=== PATIENT | female | born 2000 | race Caucasian/White ===

== ENCOUNTER 2020-10-16 11:59 | Observation (INO) ==
[2020-10-16] MEDS ORDERED: Naloxone 0.4 MG/ML INJ IVP PRN ×2 (13:10→18:48)
[2020-10-16] MEDS ORDERED: *HR* Promethazine 25 MG/ML VIAL IM PRN ×2 (13:10→18:48)
[2020-10-16] MEDS ORDERED: Ketorolac 15 MG/ML VIAL IVP PRN ×2 (13:10→18:48)
[2020-10-16] MEDS ORDERED: Ondansetron 4 MG/2 ML VIAL IVP PRN ×2 (13:10→18:48)
[2020-10-16] MEDS ORDERED: 0.9 % Sodium Chloride 1,000 ML IVC SCH ×2 (13:15→18:48)
[2020-10-16] MEDS ORDERED: Pregabalin 75 MG CAPSULE PO ONE (16:35)
[2020-10-16] MEDS ORDERED: Acetaminophen IV 1,000 MG/100 ML BAG IVPB ONE (16:35)
[2020-10-16] MEDS ORDERED: *HR* OxyCODONE Immed Rel 5 MG TABLET PO PRN (16:35)
[2020-10-16] MEDS ORDERED: *HR* HYDROmorphone 2 MG TABLET PO PRN (16:35)
[2020-10-16] MEDS ORDERED: Famotidine 20 MG/2 ML VIAL IVP ONE (16:35)
[2020-10-16] MEDS ORDERED: *HR* Labetalol 20 MG/4 ML SYRINGE IVP PRN (16:35)
[2020-10-16] MEDS ORDERED: *HR* HYDROmorphone (PF) 1 MG/ML SYRINGE IVP PRN (16:35)
[2020-10-16 16:36] LABS: Adenovirus Not Detected (Not Detect); Coronavirus 229E Not Detected (Not Detect); Coronavirus HKU1 Not Detected (Not Detect); Coronavirus NL63 Not Detected (Not Detect); Coronavirus OC43 Not Detected (Not Detect); Human Metapneumovirus Not Detected (Not Detect); Human Rhinovirus/Enterovirus Not Detected (Not Detect); Influenza A Subtype 2009 H1 Not Detected (Not Detect); SARS-CoV-2 Not Detected (Not Detect)
[2020-10-16 16:37] LABS: Bordetella Pertussis Not Detected (Not Detect); Chlamydophila pneumoniae Not Detected (Not Detect); Influenza B Not Detected (Not Detect); Mycoplasma pneumoniae Not Detected (Not Detect); Parainfluenza Virus 1 Not Detected (Not Detect); Parainfluenza Virus 2 Not Detected (Not Detect); Parainfluenza Virus 3 Not Detected (Not Detect); Parainfluenza Virus 4 Not Detected (Not Detect); Respiratory Syncytial Virus Not Detected (Not Detect)
[2020-10-16] MEDS ORDERED: Dexamethasone 4 MG/ML VIAL ONE ×2 (17:13→17:15)
[2020-10-16] MEDS ORDERED: *HR* Midazolam HCl 2 MG/2 ML VIAL ONE ×2 (17:13→17:15)
[2020-10-16] MEDS ORDERED: *HR* Propofol 200 MG/20 ML VIAL IVP ONE ×2 (17:13→17:15)
[2020-10-16] MEDS ORDERED: Lidocaine -MPF 2% 2 ML VIAL ONE ×2 (17:13→17:15)
[2020-10-16] MEDS ORDERED: Ondansetron 4 MG/2 ML VIAL ONE ×2 (17:13→17:15)
[2020-10-16] MEDS ORDERED: *HR* FentaNYL (PF) 100 MCG/2 ML VIAL ONE (17:15)
[2020-10-16] MEDS ORDERED: Isovue-300 50ML VIAL ONE (17:30)
[2020-10-16] MEDS ORDERED: Acetaminophen IV 1,000 MG/100 ML BAG IVPB SCH (18:00)
[2020-10-16] MEDS ORDERED: Ketorolac 30 MG/ML VIAL ONE (18:10)
[2020-10-16] MEDS ORDERED: 0.9 % Sodium Chloride 500 ML ONE (18:25)
[2020-10-16 22:24] VITALS: BP 111/66
[2020-10-17] MEDS ORDERED: Acetaminophen IV 1,000 MG/100 ML BAG IVPB SCH
[2020-10-17] MEDS ORDERED: cefTRIAXone 1,000 MG in 0.9 % Sodium Chloride Mini Bag 100 ML IVP SCH (09:00)
[2020-10-19 06:41] LABS: Calculi Mass 18 mg
== END 2020-10-16 22:25 | disposition home or self-care (01) ==
LOC: 3BNU
PROVIDERS: ADMIT Urology; ATTEND Urology